=== PATIENT | male | born 2000 | race Caucasian/White ===

== ENCOUNTER 2020-12-15 12:51 | Emergency (ER) | payer SELFPAY ==
[~2020-12-15] VITALS: Ht 172 cm; Wt 68.0 kg
[2020-12-15 14:26] LABS: BASOPHILS % (AUTO) 0 % (0-10); EOSINOPHILS % (AUTO) 0 % (0-10); HEMATOCRIT 42 % (40-54); HEMOGLOBIN 13.7 g/dL (13.3-17.7); LYMPHOCYTES # (AUTO) 1.3 10^3/uL (1.0-4.0); LYMPHOCYTES % (AUTO) 17 % (12-44); MEAN CORPUSCULAR HEMOGLOBIN 28 pg (25-34); MEAN CORPUSCULAR HGB CONC 33 g/dL (32-36); MEAN CORPUSCULAR VOLUME 86 fL (80-99); MEAN PLATELET VOLUME 9.3 fL (9.0-12.2); MONOCYTES # (AUTO) 0.5 10^3/uL (0.0-1.0); MONOCYTES % (AUTO) 7 % (0-12); NEUTROPHILS # (AUTO) 5.6 10^3/uL (1.8-7.8); NEUTROPHILS % (AUTO) 76 % (42-75); PLATELET COUNT 263 10^3/uL (130-400); WHITE BLOOD COUNT 7.4 10^3/uL (4.3-11.0)
[2020-12-15 14:36] LABS: ALBUMIN 4.6 GM/DL (3.2-4.5); CHLORIDE 102 MMOL/L (98-107); POTASSIUM 3.8 MMOL/L (3.6-5.0); SODIUM 136 MMOL/L (135-145)
[2020-12-15 14:37] LABS: AMYLASE 49 U/L (25-125); CALCIUM 9.6 MG/DL (8.5-10.1)
[2020-12-15 14:38] LABS: GLUCOSE 78 MG/DL (70-105); TOTAL PROTEIN 7.9 GM/DL (6.4-8.2)
[2020-12-15 14:39] LABS: CARBON DIOXIDE 25 MMOL/L (21-32)
[2020-12-15 14:40] LABS: BILIRUBIN,TOTAL 0.8 MG/DL (0.1-1.0)
[2020-12-15 14:42] LABS: ALKALINE PHOSPHATASE 84 U/L (40-136); CREATININE SERUM 0.83 MG/DL (0.60-1.30); GFR ESTIMATED > 60
[2020-12-15 14:43] LABS: BUN/CREATININE RATIO 11
[2020-12-15 14:45] LABS: ALANINE AMINOTRANSFERASE 39 U/L (0-55); LIPASE 14 U/L (8-78)
[2020-12-15] MEDS ORDERED: ONDANSETRON 4 MG/2 ML (SDV) Z0FRAN IVP ONE (15:15)
[2020-12-15] MEDS ORDERED: KETOROLAC 30 MG/ML VIAL IVP ONE (15:15)
[2020-12-15] MEDS ORDERED: NS IV 1000 ML 1,000 ML IV SCH (15:15)
--- NOTE | 2020-12-15 15:37 | ED General ---
General Chief Complaint: Cough/Cold/Flu Symptoms Stated Complaint: DANIELSON,SORE THROAT, COUGH Nursing Triage Note: pt presents to ed via pov from work with complaints of danielson x 1 1/2 weeks, cough and malaise, body chills, and vomiting blood starting today. Nursing Sepsis Screen: No Definite Risk Source of Information: Patient Exam Limitations: No Limitations History of Present Illness Date Seen by Provider: Dec 15, 2020 Time Seen by Provider: 13:13 Initial Comments 19-year-old male who presents to the emergency room after being sent home from work for cough, intermittent headache, malaise, chills for the past 1.5 weeks. He reports that he has been taking a lot of ibuprofen and has started vomiting blood today. Denies any shortness of breath, diarrhea. Timing/Duration: 1 Week, Getting Worse Associated Systoms: Fever/Chills, Headaches, Nausea/Vomiting Allergies and Home Medications Allergies Coded Allergies: No Known Drug Allergies (Unverified , 12/15/20) Patient Home Medication List Home Medication List Reviewed: Yes Review of Systems Review of Systems Constitutional: see HPI, chills, malaise Respiratory: see HPI, cough Gastrointestinal: see HPI, hematemesis, nausea, vomiting All Other Systems Reviewed Negative Unless Noted: Yes Past Vhfiqbl-Qnpsqz-Onzhul Hx Past Med/Social Hx: Reviewed Nursing Past Med/Soc Hx Patient Social History Alcohol Use: Denies Use Smoking Status: Never a Smoker Recent Infectious Disease Expo: No Recent Hopitalizations: No Past Medical History Surgeries: Yes (r eye, l wrist) Eye Surgery, Orthopedic Respiratory: No Cardiac: No Neurological: No Genitourinary: No Gastrointestinal: No Musculoskeletal: No Endocrine: No HEENT: No Cancer: No Psychosocial: No Blood Disorders: No Family Medical History Reviewed Nursing Family Hx Physical Exam Vital Signs Vital Signs - First Documented 12/15/20 13:38 Temp 37.0 Pulse 82 Resp 16 B/P (MAP) 134/89 (104) Pulse Ox 99 O2 Delivery Room Air Capillary Refill : Less Than 3 Seconds Height, Weight, BMI Height: '" Weight: lbs. oz. kg; 22.00 BMI Method: General Appearance: No Apparent Distress, WD/WN HEENT: PERRL/EOMI, TMs Normal, Normal ENT Inspection, Pharynx Normal Respiratory: Chest Non Tender, Lungs Clear, Normal Breath Sounds, No Accessory Muscle Use, No Respiratory Distress Cardiovascular: Regular Rate, Rhythm, No Edema, No Gallop, No JVD, No Murmur, Normal Peripheral Pulses Gastrointestinal: Normal Bowel Sounds, No Organomegaly, No Pulsatile Mass, Non Tender, Soft Extremity: Normal Capillary Refill, Normal Range of Motion, No Pedal Edema Neurologic/Psychiatric: Alert, Oriented x3, Normal Mood/Affect Skin: Normal Color, Warm/Dry Progress/Results/Core Measures Suspected Sepsis Recent Fever Within 48 Hours: No Infection Criteria Present: Suspected New Infection New/Unexplained Altered Menta: No Sepsis Screen: No Definite Risk SIRS Temperature: Pulse: 82 Respiratory Rate: 16 Laboratory Tests 12/15/20 14:18: White Blood Count 7.4 Blood Pressure 134 /89 Mean: 104 Laboratory Tests 12/15/20 14:18: Creatinine 0.83, Platelet Count 263, Total Bilirubin 0.8 Results/Orders Lab Results Laboratory Tests Test 12/15/20 13:37 12/15/20 14:18 Range/Units Coronavirus 2019 (HORACIO) Negative Negative White Blood Count 7.4 4.3-11.0 10^3/uL Red Blood Count 4.87 4.30-5.52 10^6/uL Hemoglobin 13.7 13.3-17.7 g/dL Hematocrit 42 40-54 % Mean Corpuscular Volume 86 80-99 fL Mean Corpuscular Hemoglobin 28 25-34 pg Mean Corpuscular Hemoglobin Concent 33 32-36 g/dL Red Cell Distribution Width 13.7 10.0-14.5 % Platelet Count 263 130-400 10^3/uL Mean Platelet Volume 9.3 9.0-12.2 fL Immature Granulocyte % (Auto) 0 % Neutrophils (%) (Auto) 76 H 42-75 % Lymphocytes (%) (Auto) 17 12-44 % Monocytes (%) (Auto) 7 0-12 % Eosinophils (%) (Auto) 0 0-10 % Basophils (%) (Auto) 0 0-10 % Neutrophils # (Auto) 5.6 1.8-7.8 10^3/uL Lymphocytes # (Auto) 1.3 1.0-4.0 10^3/uL Monocytes # (Auto) 0.5 0.0-1.0 10^3/uL Eosinophils # (Auto) 0.0 0.0-0.3 10^3/uL Basophils # (Auto) 0.0 0.0-0.1 10^3/uL Immature Granulocyte # (Auto) 0.0 0.0-0.1 10^3/uL Sodium Level 136 135-145 MMOL/L Potassium Level 3.8 3.6-5.0 MMOL/L Chloride Level 102 98-107 MMOL/L Carbon Dioxide Level 25 21-32 MMOL/L Anion Gap 9 5-14 MMOL/L Blood Urea Nitrogen 9 7-18 MG/DL Creatinine 0.83 0.60-1.30 MG/DL Estimat Glomerular Filtration Rate > 60 BUN/Creatinine Ratio 11 Glucose Level 78 70-105 MG/DL Calcium Level 9.6 8.5-10.1 MG/DL Corrected Calcium 8.5-10.1 MG/DL Total Bilirubin 0.8 0.1-1.0 MG/DL Aspartate Amino Transf (AST/SGOT) 34 5-34 U/L Alanine Aminotransferase (ALT/SGPT) 39 0-55 U/L Alkaline Phosphatase 84 40-136 U/L Total Protein 7.9 6.4-8.2 GM/DL Albumin 4.6 H 3.2-4.5 GM/DL Amylase Level 49 25-125 U/L Lipase 14 8-78 U/L Micro Results Microbiology 12/15/20 Influenza Types A,B Antigen (HERVE) - Final, Complete My Orders Orders - WEN BAUTISTA Influenza A And B Antigens (12/15/20 13:09) Comprehensive Metabolic Panel (12/15/20 13:36) Lipase (12/15/20 13:36) Amylase (12/15/20 13:36) Ed Iv/Invasive Line Start (12/15/20 13:36) Cbc With Automated Diff (12/15/20 13:36) Covid 19 Inhouse Test (12/15/20 13:47) Ketorolac Injection (Toradol Injection) (12/15/20 15:15) Ns Iv 1000 Ml (Sodium Chloride 0.9%) (12/15/20 15:15) Ondansetron Injection (Zofran Injectio (12/15/20 15:15) Pantoprazole Injection (Protonix Injecti (12/15/20 15:45) Medications Given in ED Current Medications Medications Dose Ordered Sig/David Route Start Time Stop Time Status Last Admin Dose Admin Ketorolac Tromethamine 30 mg ONCE ONCE IVP 12/15/20 15:15 12/15/20 15:16 DC 12/15/20 15:20 30 MG Ondansetron HCl 8 mg ONCE ONCE IVP 12/15/20 15:15 12/15/20 15:16 DC 12/15/20 15:19 8 MG Pantoprazole 40 mg ONCE ONCE IV 12/15/20 15:45 12/15/20 15:46 DC 12/15/20 15:45 40 MG Vital Signs/I&O 12/15/20 12/15/20 12/15/20 13:38 13:38 16:10 Temp 37.0 37.0 Pulse 82 80 Resp 16 16 B/P (MAP) 134/89 (104) 130/84 (104) Pulse Ox 99 99 O2 Delivery Room Air Capillary Refill : Less Than 3 Seconds Blood Pressure Mean: 104 Progress Note : Time: 16:04 Progress Note Patient reports that he is feeling better at this time. He is no longer nauseated. His migraine has resolved after medication and fluids. He agrees with plan of care, plans for discharge, return precautions were given. Departure Impression Primary Impression: Migraine Additional Impression: Gastritis Disposition: 01 HOME, SELF-CARE Condition: Stable/Unchanged Departure-Patient Inst. Decision time for Depature: 15:41 Patient Instructions: Migraines (DC), Gastritis (DC) Add. Discharge Instructions: Drink plenty of fluids to stay hydrated. Do not take any more ibuprofen until your stomach is completely healed. You may use Tylenol as needed for pain. Follow-up with your primary care provider within 1 week for recheck. Take Pepcid 20 mg daily. Consume a clear liquid diet and advance as tolerated. Return back to the emergency room for worsening symptoms, worsening vomiting blood or any other concerns as needed. All discharge instructions reviewed with patient and/or family. Voiced understanding. WEN BAUTISTA Dec 15, 2020 15:37
[2020-12-15] MEDS ORDERED: PANTOPRAZOLE 40 MG (PROTONIX) VIAL IV ONE (15:45)
[2020-12-15 16:10] VITALS: BP 130/84
[2020-12-16] MEDS ORDERED: BUTA-249 PO (02:37)
[2020-12-16] MEDS ORDERED: PRD20T PO (02:39)
== END 2020-12-15 16:10 | disposition home or self-care (01) ==
LOC: ER 12:53
DX: G43.909 Migraine, unspecified, not intractable, without status migrainosus (principal); K29.70 Gastritis, unspecified, without bleeding; Z20.822 Contact with and (suspected) exposure to COVID-19
CPT/HCPCS: 80053; 82150; 83690; 85025; 87804; 99284; U0002; 36415; 87635

== ENCOUNTER 2020-12-16 01:21 | Emergency (ER) | payer SELFPAY ==
[~2020-12-16] VITALS: Ht 172 cm; Wt 68.0 kg
--- NOTE | 2020-12-16 02:09 | ED General ---
General Chief Complaint: Head/Cervical Problems Stated Complaint: FEVER 103.5,MIGRIANE Nursing Triage Note: PT RETURNED TO E.D. C/O HEADACHE/FEVER RETURNING 1HR TRAINING AND DEVELOPMENT OFFICER. NO TREATMENT Nursing Sepsis Screen: No Definite Risk Source of Information: Patient History of Present Illness Date Seen by Provider: Dec 16, 2020 Time Seen by Provider: 01:40 Initial Comments PT ARRIVES VIA POV FROM HOME PT HERE APPROXIMATELY 12 HOURS AGO FOR SAME COMPLAINTS STATES HE IS "NOT BETTER" BECAUSE SYMPTOMS RETURNED 1 HOUR AGO HAS NOT TAKEN ANYTHING FOR SYMPTOMS SINCE PRIOR ER VISIT C/O HEADACHE FOR A COUPLE OF WEEKS C/O SORE THROAT C/O FEVER--STATES WAS 103.5 JUST PRIOR TO ARRIVAL C/O NON-PRODUCTIVE COUGH C/O BODY ACHES NO PCP--"JUST MOVED HERE 4 MONTHS AGO" FROM [place] Allergies and Home Medications Allergies Coded Allergies: No Known Drug Allergies (Unverified , 12/15/20) Home Medications Butalb/Acetaminophen/Caffeine 1 Each Tablet, 1-2 EACH PO Q6 Prescribed by: APOORVA REEDER on 12/16/20236 Prednisone 20 Mg Tab, 40 MG PO DAILY Prescribed by: APOORVA REEDER on 12/16/209 Patient Home Medication List Home Medication List Reviewed: Yes Review of Systems Review of Systems Constitutional: see HPI, fever EENTM: see HPI, throat pain Respiratory: see HPI, cough; No short of breath Cardiovascular: no symptoms reported Gastrointestinal: other (HAD NAUSEA/VOMITING EARLIER, BUT NOT NOW) Genitourinary: no symptoms reported Musculoskeletal: see HPI Skin: no symptoms reported Psychiatric/Neurological: See HPI, Headache Hematologic/Lymphatic: No Symptoms Reported Immunological/Allergic: no symptoms reported Past Ubbxdwx-Yittvp-Smhwtt Hx Past Med/Social Hx: Reviewed and Corrections made Patient Social History Alcohol Use: Denies Use Smoking Status: Never a Smoker 2nd Hand Smoke Exposure: No Recent Infectious Disease Expo: No Recent Hopitalizations: No Immunizations Up To Date Tetanus Booster (TDap): Unknown Seasonal Allergies Seasonal Allergies: No Past Medical History Surgeries: Yes (RIGHT PERIORBITAL /FACIAL SURGERY; LEFT HAND SURGERY) Eye Surgery, Orthopedic Respiratory: No Cardiac: No Neurological: No Genitourinary: No Gastrointestinal: No Musculoskeletal: No Endocrine: No HEENT: No Cancer: No Psychosocial: No Integumentary: No Blood Disorders: No Physical Exam Vital Signs Vital Signs - First Documented 2/27/21 01:32 Temp 37.0 Pulse 93 Resp 16 B/P (MAP) 132/87 (102) Pulse Ox 98 O2 Delivery Room Air Capillary Refill : Less Than 3 Seconds Height, Weight, BMI Height: '" Weight: lbs. oz. kg; 22.00 BMI Method: General Appearance: No Apparent Distress, WD/WN HEENT: PERRL/EOMI, TMs Normal, Normal ENT Inspection, Pharynx Normal Neck: Full Range of Motion, Normal Inspection, Non Tender, Supple Respiratory: Normal Breath Sounds, No Accessory Muscle Use, No Respiratory Distress Cardiovascular: Regular Rate, Rhythm, No Edema, No JVD, No Murmur, Normal Peripheral Pulses Gastrointestinal: Non Tender, Soft Back: Normal Inspection, No CVA Tenderness, No Vertebral Tenderness Extremity: Normal Capillary Refill, Normal Inspection, Normal Range of Motion, Non Tender, No Calf Tenderness Neurologic/Psychiatric: Alert, Oriented x3, No Motor/Sensory Deficits, Normal Mood/Affect, senior technical business analyst II-XII Norm as Tested Skin: Normal Color, Warm/Dry; No Rash Progress/Results/Core Measures Suspected Sepsis Recent Fever Within 48 Hours: No Infection Criteria Present: None New/Unexplained Altered Menta: No Sepsis Screen: No Definite Risk SIRS Temperature: Pulse: 93 Respiratory Rate: 16 Blood Pressure 132 /87 Mean: 102 Results/Orders Lab Results Laboratory Tests Test 12/15/20 14:18 12/16/20 01:58 Range/Units Monoscreen POSITIVE H NEGATIVE Group A Streptococcus Screen NEGATIVE NEGATIVE Micro Results Microbiology 12/16/20 Throat Culture - Preliminary, Resulted My Orders Orders - APOORVA REEDER DO Monotest (12/16/20 01:32) Rapid Strep A Screen (12/16/20 01:32) Chest Pa/Lat (2 View) (12/16/20 02:06) Vital Signs/I&O 12/16/20 12/16/20 01:32 02:50 Temp 37.0 37.1 Pulse 93 93 Resp 16 16 B/P (MAP) 132/87 (102) 132/87 (102) Pulse Ox 98 98 O2 Delivery Room Air Capillary Refill : Less Than 3 Seconds Blood Pressure Mean: 102 Progress Note : Progress Note UNEVENTFUL ER STAY Diagnostic Imaging Comments CXR--NO ACUTE PROCESS, PENDING RADIOLOGIST REVIEW Reviewed: Reviewed by Me Departure Impression Primary Impression: Mononucleosis Disposition: HOME, SELF-CARE Condition: Stable Departure-Patient Inst. Referrals: NO,LOCAL PHYSICIAN (PCP/Family) Primary Care Physician Patient Instructions: Mononucleosis (DC) Add. Discharge Instructions: LOTS OF CLEAR LIQUIDS--WATER, BROTH, JELLO, GATORADE TYLENOL 1 GRAM 4 TIMES A DAY TAKE PEPCID PRESCRIBED EARLIER TODAY FOLLOW UP WITH OF MARV IN 4-5 DAYS FOR FURTHER CARE All discharge instructions reviewed with patient and/or family. Voiced understanding. Scripts Prednisone (Prednisone) 20 Mg Tab 40 MG PO DAILY, #6 TAB 0 Refills Prov: APOORVA REEDER DO 12/16/20 Butalb/Acetaminophen/Caffeine (Esgic 50-325-40 mg Tablet) 1 Each Tablet 1-2 EACH PO Q6, #12 TAB Prov: APOORVA REEDER DO 12/16/20 APOORVA REEDER DO Dec 16, 2020 02:09
[2020-12-16] MEDS ORDERED: BUTA-249 PO (02:37)
[2020-12-16] MEDS ORDERED: PRD20T PO (02:39)
[2020-12-16 02:50] VITALS: BP 132/87
--- NOTE | 2020-12-16 07:57 | Diagnostic Imaging Report ---
EXAMINATION: CHEST (PA AND LATERAL) CLINICAL INDICATION: 19-year-old male, cough and fever. COMPARISON: None. FINDINGS: Heart size and mediastinal contours are unremarkable. There is no identified pneumothorax. There is no pleural effusion. There is no identified focal airspace consolidation. IMPRESSION: No identified acute cardiopulmonary abnormality. Dictated by: Dictated on workstation # [id number]
== END 2020-12-16 03:00 | disposition home or self-care (01) ==
LOC: EDUNIT# 01:21 → ER 01:28
DX: B27.90 Infectious mononucleosis, unspecified without complication (principal); Z79.52 Long term (current) use of systemic steroids
CPT/HCPCS: 36415; 71046; 86308; 87430

== ENCOUNTER 2020-12-27 11:43 | Emergency (ER) | payer OTHER ==
[~2020-12-27] VITALS: Ht 172 cm; Wt 68.0 kg
[~2020-12-27 11:43] MED LIST: BUTA-249 PO; PRD20T PO
[2020-12-27] MEDS ORDERED: cefTRIAXone FOR IV USE 1,000 MG in WATER (STERILE) FOR INJECTION 10 ML IV ONE (12:00)
[2020-12-27] MEDS ORDERED: AZITHROMYCIN 250 MG TAB (ZITHROMAX) PO ONE (12:00)
[2020-12-27] MEDS ORDERED: KETOROLAC 30 MG/ML VIAL IVP ONE (12:00)
--- NOTE | 2020-12-27 12:01 | ED GU-Male ---
General Stated Complaint: R TESTICLE PAIN/SWOLLEN Source: patient Exam Limitations: no limitations History of Present Illness Date Seen by Provider: Dec 27, 2020 Time Seen by Provider: 11:45 Initial Comments Patient presents ER by private conveyance with a significant other chief complaint of 3 days now progressively worsening pain, 9 out of 10 with some moderate swelling in the right testicle. No erythema or discharge. No blood in the urine. He has not ever had a STD. He denies dysuria fever chills nausea vomiting or hernia. Allergies and Home Medications Allergies Coded Allergies: No Known Drug Allergies (Unverified , 12/15/20) Home Medications No Active Prescriptions or Reported Meds Patient Home Medication List Home Medication List Reviewed: Yes Review of Systems Review of Systems Constitutional: No chills, No fever, No malaise EENTM: No ear discharge, No ear pain Respiratory: No cough, No short of breath Cardiovascular: No chest pain, No palpitations Gastrointestinal: No abdominal pain, No nausea, No vomiting Genitourinary: see HPI; denies burning, denies dysuria, denies hematuria; pain (Right testicle) Musculoskeletal: No back pain, No joint pain All Other Systemes Reviewed Negative Unless Noted: Yes Past Nfjstsq-Txznxr-Oddqro Hx Patient Social History Alcohol Use: Denies Use Smoking Status: Never a Smoker 2nd Hand Smoke Exposure: No Recent Hopitalizations: No Immunizations Up To Date Tetanus Booster (TDap): Unknown Seasonal Allergies Seasonal Allergies: No Past Medical History Surgeries: Yes (RIGHT PERIORBITAL /FACIAL SURGERY; LEFT HAND SURGERY) Eye Surgery, Orthopedic Respiratory: No Cardiac: No Neurological: No Genitourinary: No Gastrointestinal: No Musculoskeletal: No Endocrine: No HEENT: No Cancer: No Psychosocial: No Integumentary: No Blood Disorders: No Physical Exam Vital Signs Vital Signs - First Documented 12/27/20 11:45 Temp 35.2 Pulse 87 Resp 18 B/P (MAP) 132/64 (86) Pulse Ox 97 Capillary Refill : Height, Weight, BMI Height: '" Weight: lbs. oz. kg; 22.00 BMI Method: General Appearance: WD/WN, moderate distress HEENT: PERRL/EOMI, pharynx normal Neck: non-tender, full range of motion, supple, normal inspection Cardiovascular: normal peripheral pulses, regular rate, rhythm Respiratory: no respiratory distress, no accessory muscle use Gastrointestinal: normal bowel sounds, non tender, soft Male: normal genitalia (Normal appearing penis without discharge from the urethra. No laceration, ulcers, lesions. Mild swelling of the right testicle with faint erythema), testicular tenderness (Right worse than left) Genital/Rectal: other (Negative for inguinal hernias on Valsalva maneuver.) Extremities: non-tender, normal capillary refill Neurologic/Psychiatric: alert, oriented x 3 Skin: normal color, warm/dry Progress/Results/Core Measures Suspected Sepsis SIRS Temperature: Pulse: Respiratory Rate: Laboratory Tests 12/27/20 11:56: White Blood Count 5.1 Blood Pressure / Mean: Laboratory Tests 12/27/20 11:56: Creatinine 0.77, Platelet Count 282 Results/Orders Lab Results Laboratory Tests Test 12/27/20 11:56 12/27/20 12:33 Range/Units White Blood Count 5.1 4.3-11.0 10^3/uL Red Blood Count 4.61 4.30-5.52 10^6/uL Hemoglobin 13.0 L 13.3-17.7 g/dL Hematocrit 39 L 40-54 % Mean Corpuscular Volume 85 80-99 fL Mean Corpuscular Hemoglobin 28 25-34 pg Mean Corpuscular Hemoglobin Concent 33 32-36 g/dL Red Cell Distribution Width 13.7 10.0-14.5 % Platelet Count 282 130-400 10^3/uL Mean Platelet Volume 9.1 9.0-12.2 fL Immature Granulocyte % (Auto) 0 % Neutrophils (%) (Auto) 57 42-75 % Lymphocytes (%) (Auto) 31 12-44 % Monocytes (%) (Auto) 9 0-12 % Eosinophils (%) (Auto) 2 0-10 % Basophils (%) (Auto) 0 0-10 % Neutrophils # (Auto) 2.9 1.8-7.8 10^3/uL Lymphocytes # (Auto) 1.6 1.0-4.0 10^3/uL Monocytes # (Auto) 0.5 0.0-1.0 10^3/uL Eosinophils # (Auto) 0.1 0.0-0.3 10^3/uL Basophils # (Auto) 0.0 0.0-0.1 10^3/uL Immature Granulocyte # (Auto) 0.0 0.0-0.1 10^3/uL Sodium Level 139 135-145 MMOL/L Potassium Level 3.9 3.6-5.0 MMOL/L Chloride Level 107 98-107 MMOL/L Carbon Dioxide Level 23 21-32 MMOL/L Anion Gap 9 5-14 MMOL/L Blood Urea Nitrogen 14 7-18 MG/DL Creatinine 0.77 0.60-1.30 MG/DL Estimat Glomerular Filtration Rate > 60 BUN/Creatinine Ratio 18 Glucose Level 94 70-105 MG/DL Calcium Level 9.0 8.5-10.1 MG/DL Urine Color YELLOW Urine Clarity CLEAR Urine pH 7.5 5-9 Urine Specific [place] 1.025 H 1.016-1.022 Urine Protein NEGATIVE NEGATIVE Urine Glucose (UA) NEGATIVE NEGATIVE Urine Ketones NEGATIVE NEGATIVE Urine Nitrite NEGATIVE NEGATIVE Urine Bilirubin NEGATIVE NEGATIVE Urine Urobilinogen 0.2 < = 1.0 MG/DL Urine Leukocyte Esterase NEGATIVE NEGATIVE Urine RBC (Auto) NEGATIVE NEGATIVE Urine RBC NONE /HPF Urine WBC 0-2 /HPF Urine Crystals PRESENT H /LPF Urine Amorphous Sediment MOD SAÚL PHOSPHATE H /LPF Urine Bacteria NEGATIVE /HPF Urine Casts NONE /LPF Urine Mucus SMALL H /LPF Urine Culture Indicated NO My Orders Orders - GLENN CALHOUN Ua Culture If Indicated (12/27/20 11:47) Cbc With Automated Diff (12/27/20 11:55) Basic Metabolic Panel (12/27/20 11:55) Syphilis Antibody Screen (12/27/20 11:55) Neis Fredo Dna Urine Test (12/27/20 11:55) Chlamydia Trachomatis Urine (12/27/20 11:55) Azithromycin Tablet (Zithromax Tablet) (12/27/20 12:00) Ketorolac Injection (Toradol Injection) (12/27/20 12:00) Ceftriaxone For Iv Use (Rocephin For I (12/27/20 12:00) Us Scrotum (Testicle) [id number] (12/27/20 11:55) Medications Given in ED Current Medications Medications Dose Ordered Sig/David Route Start Time Stop Time Status Last Admin Dose Admin Azithromycin 1,000 mg ONCE ONCE PO 12/27/20 12:00 12/27/20 12:01 DC 12/27/20 12:04 1,000 MG Ceftriaxone Sodium 1000 mg/ Sterile Water 10 ml @ 200 mls/hr ONCE ONCE IV 12/27/20 12:00 12/27/20 12:02 DC 12/27/20 12:04 200 MLS/HR Ketorolac Tromethamine 30 mg ONCE ONCE IVP 12/27/20 12:00 12/27/20 12:01 DC 12/27/20 12:04 30 MG Vital Signs/I&O 12/27/20 11:45 Temp 35.2 Pulse 87 Resp 18 B/P (MAP) 132/64 (86) Pulse Ox 97 Capillary Refill : Progress Note : Time: 12:00 Progress Note Orchitis, epididymitis, less likely torsion. Will get an ultrasound and give him some Toradol, Rocephin, azithromycin and check for syphilis, gonorrhea and chlamydia. Diagnostic Imaging Diagonstic Imaging: Ultrasound Plain Films/CT/US/NM/MRI: other (Scrotum) Comments [facility], [place] NAME: MARY ANN LYLE Arleth MED REC#: [id number] PT STATUS: REG ER : 2000 PHYSICIAN: GLENN CALHOUN MD ADMIT DATE: 12/27/20/ER Signed Date of Exam:12/27/20 US SCROTUM (Testicle) [id number] INDICATION: right swollen painful testicle TECHNIQUE: Real-time grayscale sonographic imaging and color vascular evaluation of the scrotum. CORRELATION STUDY: None FINDINGS: RIGHT TESTICLE: 4.3 x 2.3 x 3.0 cm. LEFT TESTICLE: 4.3 x 1.9 x 2.7 cm. The testicles are in normal location and demonstrate homogeneous echotexture. There is vascular flow to the testicles. The epididymides appear unremarkable. IMPRESSION: 1. Unremarkable scrotal ultrasound examination. Dictated by: Dictated on workstation # [id number] Dict: 12/27/20 1301 Trans: 12/27/20 1304 DO [id number] Interpreted by: STEFANO JUNIOR DO Electronically signed by: STEFANO JUNIOR DO 12/27/20 1304 Reviewed: Reviewed by Me Departure Impression Primary Impression: Orchitis of right testicle Disposition: HOME, SELF-CARE Condition: Stable Departure-Patient Inst. Decision time for Depature: 13:21 Referrals: NO,LOCAL PHYSICIAN (PCP/Family) Primary Care Physician Patient Instructions: Epididymitis (DC) Add. Discharge Instructions: I suspect you have developed an infection of the soft tissues of your testicle and epididymitis. You have received your first dose of antibiotics and can start the doxycycline today when you pick them up. Doxycycline 1 capsule twice a day with food for the next 10 days. Wear sunscreen if you are going to be out in the sun while on doxycycline. Drink plenty of fluids and use Tylenol and Motrin as necessary for pain. Heat may be helpful. If you have significant pain keeping you from being functional then you may use 1 tablet of hydrocodone every 6 hours as necessary. Scripts Hydrocodone/Acetaminophen (Hydrocodone-Acetamin 5-325 mg) 1 Each Tablet 1 TAB PO Q6H PRN for PAIN-MODERATE (5-7), #10 TAB 0 Refills Prov: GLENN CALHOUN 12/27/20 Doxycycline Monohydrate (Doxycycline Monohydrate) 100 Mg Capsule 100 MG PO BID for 10 Days, #20 CAP 0 Refills Prov: GLENN CALHOUN 12/27/20 Work/School Note: Work Release Form Date Seen in the Emergency Department: Dec 27, 2020 Return to Work: Dec 29, 2020 Restrictions: No Restrictions GLENN CALHOUN Dec 27, 2020 12:01
[2020-12-27 12:03] LABS: BASOPHILS % (AUTO) 0 % (0-10); EOSINOPHILS # (AUTO) 0.1 10^3/uL (0.0-0.3); EOSINOPHILS % (AUTO) 2 % (0-10); HEMATOCRIT 39 % (40-54); LYMPHOCYTES # (AUTO) 1.6 10^3/uL (1.0-4.0); LYMPHOCYTES % (AUTO) 31 % (12-44); MEAN CORPUSCULAR HEMOGLOBIN 28 pg (25-34); MEAN CORPUSCULAR HGB CONC 33 g/dL (32-36); MEAN CORPUSCULAR VOLUME 85 fL (80-99); MEAN PLATELET VOLUME 9.1 fL (9.0-12.2); MONOCYTES # (AUTO) 0.5 10^3/uL (0.0-1.0); MONOCYTES % (AUTO) 9 % (0-12); NEUTROPHILS # (AUTO) 2.9 10^3/uL (1.8-7.8); NEUTROPHILS % (AUTO) 57 % (42-75); PLATELET COUNT 282 10^3/uL (130-400); WHITE BLOOD COUNT 5.1 10^3/uL (4.3-11.0)
[2020-12-27 12:13] LABS: CHLORIDE 107 MMOL/L (98-107); POTASSIUM 3.9 MMOL/L (3.6-5.0); SODIUM 139 MMOL/L (135-145)
[2020-12-27 12:15] LABS: GLUCOSE 94 MG/DL (70-105)
[2020-12-27 12:16] LABS: CARBON DIOXIDE 23 MMOL/L (21-32)
[2020-12-27 12:18] LABS: CREATININE SERUM 0.77 MG/DL (0.60-1.30); GFR ESTIMATED > 60
[2020-12-27 12:19] LABS: BUN/CREATININE RATIO 18
[2020-12-27 12:45] LABS: BILIRUBIN,URINE NEGATIVE (NEGATIVE); CLARITY,URINE CLEAR; COLOR,URINE YELLOW; GLUCOSE, URINE (UA) NEGATIVE (NEGATIVE); KETONES,URINE NEGATIVE (NEGATIVE); LEUKOCYTE ESTERASE ,URINE NEGATIVE (NEGATIVE); NITRITE,URINE NEGATIVE (NEGATIVE); PH,URINE 7.5 (5-9); PROTEIN,URINE NEGATIVE (NEGATIVE)
--- NOTE | 2020-12-27 13:05 | Diagnostic Imaging Report ---
INDICATION: right swollen painful testicle TECHNIQUE: Real-time grayscale sonographic imaging and color vascular evaluation of the scrotum. CORRELATION STUDY: None FINDINGS: RIGHT TESTICLE: 4.3 x 2.3 x 3.0 cm. LEFT TESTICLE: 4.3 x 1.9 x 2.7 cm. The testicles are in normal location and demonstrate homogeneous echotexture. There is vascular flow to the testicles. The epididymides appear unremarkable. IMPRESSION: 1. Unremarkable scrotal ultrasound examination. Dictated by: Dictated on workstation # [id number]
[2020-12-27 13:13] LABS: AMORPHOUS SEDIMENT,UR MOD AMOR PHOSPHATE /LPF; BACTERIA,URINE NEGATIVE /HPF; WBC,URINE 0-2 /HPF
[2020-12-27] MEDS ORDERED: ACHD5005 PO (13:23)
[2020-12-27] MEDS ORDERED: DOXY100C42 PO (13:23)
[2020-12-27 13:41] VITALS: BP 132/64
[2020-12-27] MEDS ORDERED: HYDROcodone/APAP 5 MG/325 MG (LORTAB) TAB PO ONE (13:45)
== END 2020-12-27 13:41 | disposition home or self-care (01) ==
LOC: EDUNIT# 11:43 → ER 11:45
DX: N45.2 Orchitis (principal)
CPT/HCPCS: 36415; 76870; 80048; 81000; 85025; 86780; 87491; 87591